=== PATIENT | female | born 1975 | race Caucasian/White ===

== ENCOUNTER 2022-06-04 15:34 | Emergency (ER) | payer SELFPAY ==
--- NOTE | ~2022-06-04 | XR_ITS ---
XR finger 3rd LT min 2V 06/04/2022 16:01 Indication: Left third finger pain Procedure: 4 views left third finger Comparison: No prior studies for comparison. Findings: There is an expansile lytic lesion of the left third distal phalanx with possible nondispla brenda pathologic fracture. There is mild soft tissue swelling. No foreign body. Impression: 1: Possible nondisplaced pathologic fracture left third distal phalanx. Expansile lytic lesion of the distal phalanx is likely benign. Reviewed, dictated and finalized at location A. Impression: 1: Possible nondisplaced pathologic fracture left third distal phalanx. Expansi le lytic lesion of the distal phalanx is likely benign.
[2022-06-04 15:44] VITALS: BP 111/70; PULSE 72; RESP 16; TEMP 36.2; O2SAT 100
--- NOTE | 2022-06-04 16:15 | ED.UPPEXIN ---
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 Has a previous injury never followed up or had it seen. swelling and throbbing she reports. Does have full range of motion of the DIP PIP and MCP joints. Bruising, swelling to the distal aspect of the finger without a subungual hematoma Related Data Allergies Allergy/AdvReac Type Severity Reaction Status Date / Time diphenhydramine Allergy Severe Dyspnea / Verified 06/04/22 16:10 [From Benadryl] SOB naproxen [From Aleve] Allergy Severe Dyspnea / Verified 06/04/22 16:10 SOB Penicillins Allergy Severe Hives Verified 06/04/22 16:10 Review of Systems Review of Systems: All systems reviewed & are unremarkable except as noted in HPI and below Constitutional: Constitutional: Reports no additional constitutional complaints, Denies chills and Denies fever(s) Eyes: Eyes: Reports no additional eye complaints ENT: Reports system reviewed and no additional complaints, except as documented Cardiovascular: Cardiovascular: Reports no additional cardiovascular complaints Respiratory: Respiratory: Reports no additional respiratory complaints Gastrointestinal: Gastrointestinal: Reports no additional gastrointestinal complaints Musculoskeletal: Musculoskeletal: Reports as per HPI Integumentary/Breasts: Skin/Breast: Reports system reviewed and no additional complaints, except as docu Neurologic: Reports system reviewed and no additional complaints, except as documented Psychiatric: Psychiatric: Reports no additional psychiatric complaints Allergic/Immunologic: Allergic/Immunologic: Reports no additional allergic/immunologic complaints PMFSH Past Medical History Medical History (Updated 06/04/22 @ 20:20 by Lavinia Brown APRN) No significant medical problems Surgical History Surgical History (Updated 06/04/22 @ 20:20 by Lavinia Brown APRN) No history of previous surgery Comments At the time of my signature, I reviewed and agree with the nursing past medical, surgical, social, and family history. There is no relevant family history pertinent to the patient complaint. Exam Const: General: healthy appearing, no acute distress and alert Nutritional Appearance: well nourished Orientation/consciousness: patient oriented x3 Limitations: no limitations HENMT: Head: normal to inspection Ears: external ears normal Eyes: General: appearance normal, both eyes and all related structures Pupils: Equal, round and reactive pupils present Neck: Neck: normal visual inspection, no lymphadenopathy and no meningeal signs Chest: Chest palpation & inspection: normal inspection of the chest Resp: Effort & Inspection: normal respiratory effort and no use of accessory muscles Auscultation: clear to auscultation bilaterally, no crackles, no rales, no rhonchi and no wheezes Cardio: Rate: regular rate Rhythm: regular rhythm Back/Spine/Pelvis: Cervical Spine: normal cervical lordosis Thoracic/Lumbar Spine: thoracic and lumbar spine normal to inspection Skin: General skin exam: normal color Rashes: no rashes Wounds: no wounds Neuro: General: patient oriented x3, moves all extremities, no meningeal signs and no focal motor deficits Cranial nerves: Yes Equal, round and reactive pupils present Speech: normal speech Gait exam (Neuro): Normal gait present Extrem: General: normal to inspection, full ROM and capillary refill normal Left upper extremity: full ROM and hand normal capillary refill, normal ROM of fingers, swelling of the 3rd digit at the distal phalanx and ecchymosis of the 3rd digit at the distal phalanx; no abrasions, no l
== END 2022-06-04 16:45 | disposition home or self-care (01) ==
PROVIDERS: Emergency Provider Nurse Practitioner
DX: S62.633A Displaced fracture of distal phalanx of left middle finger, initial encounter for closed fracture (principal); X58.XXXA Exposure to other specified factors, initial encounter; M89.9 Disorder of bone, unspecified
CPT/HCPCS: 29130; 73140; 99204; G0463